=== PATIENT | female | born 1960 | race Caucasian/White ===

== ENCOUNTER 2018-02-09 11:06 | Outpatient (CLI) | payer BC ==
[~2018-02-09] VITALS: Ht 157.5 cm; Wt 100.0 kg
[~2018-02-09 11:06] MED LIST: BENICAR HCT 40-1 TAB PO; BYSTOLIC5 MG PO; MOBIC7.5 MG PO; PLAVIX75 MG PO; TIROSINT13 MCG PO; WELLBUTRIN75 MG PO; XANAX0.5 MG PO
[2018-02-09 12:04] LABS: BASOPHILS 0.4 % (0-2); EOSINOPHILS 0.4 % (0-7); HEMATOCRIT 46.4 % (36.0-48.0); HEMOGLOBIN 15.5 g/dL (12-16); IMMATURE GRANULOCYTES 0.2 % (0-5); LYMPHOCYTES 35.6 % (15-50); MCH 30.3 pg (26.0-34.0); MCHC 33.4 g/dL (31.0-37.0); MCV 90.6 fL (80.0-100.0); MEAN PLATELET VOLUME 9.8 fL (7.4-10.4); MONOCYTES 7.9 % (2-11); NEUTROPHILS 55.5 % (40-80); PLATELET COUNT 278 10x3/uL (130-400); RBC 5.12 10x6/uL (4.00-5.40); RDW 13.4 % (11.5-14.5); WBC 4.7 10x3/uL (4.8-10.8)
[2018-02-09 12:26] LABS: ANION GAP 12.7 mmol/L (8-16); BILIRUBIN - DIRECT 0.12 mg/dL (0.00-0.30); BILIRUBIN - INDIRECT 0.67 mg/dL (0.00-1.00); BILIRUBIN - TOTAL 0.79 mg/dL (0.2-1.3); CALCIUM 9.5 mg/dL (8.5-10.1); CARBON DIOXIDE 30.3 mmol/L (21.0-32.0)
[2018-02-09 12:28] VITALS: Ht 157.5 cm; Wt 100.0 kg
[2018-02-09 13:13] LABS: APPEARANCE HAZY (CLEAR); BILIRUBIN NEGATIVE (NEGATIVE); COLOR YELLOW (YELLOW); GLUCOSE NEGATIVE (NEGATIVE); KETONE NEGATIVE (NEGATIVE); NITRITE NEGATIVE (NEGATIVE); PROTEIN TRACE mg/dL (NEGATIVE); UROBILINOGEN NORMAL (NORMAL)
[2018-02-09 13:16] LABS: BACTERIA MODERATE /hpf (NONE SEEN); HYALINE CAST 0-5 /lpf (NONE SEEN); MUCUS >1+ /lpf (NONE SEEN); WHITE CELLS - URINE 0-5 /hpf (0-5)
== END 2018-02-09 17:30 | disposition home or self-care (01) ==
LOC: D.OPS 11:06
PROVIDERS: Family Medicine
DX: E86.0 Dehydration (principal); R10.9 Unspecified abdominal pain